=== PATIENT | male | born 1950 | race Caucasian/White ===

== ENCOUNTER 2018-06-18 06:56 | Day surgery (SDC) | payer MEDICARE, OTHER ==
[~2018-06-18 06:56] MED LIST: KETOROLAC TROMETHAMINE 0.45% 4 DROP/0.4 ML DROPERETTE OS PRN
[2018-06-18] MEDS ORDERED: EPINEPHRINE INJ/PF 1 MG/1 ML AMPULE ONE ×2 (06:59→07:27)
[2018-06-18] MEDS ORDERED: LIDOCAINE 1%/PHENYLEPHRINE 1.5% 1 ML VIAL ONE ×2 (06:59→07:28)
[2018-06-18] MEDS ORDERED: CHONDR SU A NA/HYALUR INTRAOC KIT (SURGICARE) ONE ×2 (06:59→07:28)
[2018-06-18] MEDS ORDERED: FENTANYL CITRATE INJ/PF 100 MCG/2 ML AMPUL ONE (07:01)
[2018-06-18] MEDS ORDERED: MIDAZOLAM 2 MG/2 ML INJ ONE (07:01)
[2018-06-18] MEDS: TETRACAINE HCL 0.5% OPH SOLN 4 ML OS PRN ×3 (07:23→07:56)
[2018-06-18] MEDS: BESIFLOXACIN HCL 0.6% OPH SUSP 5 ML BOTTLE OS PRN ×4 (07:24→08:22)
[2018-06-18] MEDS: CYCLOPENTOLATE 0.2%/PHENYLEPHRINE 1% OPH SOLN 2 ML OS PRN ×3 (07:24→07:46)
[2018-06-18] MEDS: TROPICAMIDE 1% OPH SOLN 3 ML OS PRN ×3 (07:24→07:46)
[2018-06-18] MEDS: DORZOLAMIDE HCL 2%/TIMOLOL MALEAT 0.5% OPH SOLN 10 ML OS PRN ×2 (08:22)
--- NOTE | 2018-06-19 08:34 | [facility] OPERATIVE REPORT E ---
[facility] Operative Report NAME: CARYN REED AGE: 68Y DATE OF SURGERY: 06/18/2018 ROOM: PREOPERATIVE DIAGNOSIS: CATARACT, LEFT EYE. POSTOPERATIVE DIAGNOSIS: CATARACT, LEFT EYE. OPERATION: Cataract extraction with insertion of an IOL of the left eye. SURGEON: LYNDSEY LOPEZ M.D. ANESTHESIA: Topical. PROCEDURE: After obtaining appropriate consent, the patient's left eye was prepped and draped in sterile fashion as well as the surgeon in a sterile manner and cataract surgery was started. First a paracentesis blade was used to make a side-port incision. Viscoelastic was used to inflate the anterior chamber. Next a 2.4 mm incision was made with a 2.4 mm blade, clear corneal temporally. A continuous capsulorrhexis was made using a cystotome and Utrata forceps. Following this hydrodissection was carried out to make the lens fully loose and mobile and it was rotated 90 degrees. Following this, a nivkot-kpw-vedoaxa technique was used to phacoemulsify the lens with a CDE of 10.69. The remaining cortex was removed with irrigation/aspiration. Provisc was instilled into the capsular bag to inflate the bag. A SN60WF, 22.0 diopter lens was placed. The remaining viscoelastic material was removed with irrigation/aspiration. Following this, the incision was found to be watertight. Besivance was instilled into the eye and a protective shield was placed over the eye. The patient returned to the postoperative recovery in stable condition. DICTATING PHYSICIAN: LYNDSEY LOPEZ M.D. [id number] PHY#: [id number] ID: [id number] JOB#: [id number] ACCT: [id number] cc:LYNDSEY LOPEZ M.D. >
--- NOTE | 2018-06-19 08:39 | [facility] DISCHARGE SUMMARY E ---
[facility] Discharge Summary NAME: CARYN REED AGE: 68Y ADMITTED: 06/18/2018 DISCHARGED: 06/18/2018 DIAGNOSIS: CATARACT, LEFT EYE. SUMMARY: This is a 68-year-old male who underwent cataract extraction, left eye. He underwent surgery because he was having difficulty driving due to increased glare from headlights and difficulty seeing small print. DISCHARGE INSTRUCTIONS: They should be on a regular diet, no bending at the waist, and no heavy lifting. They should use their Moxifloxacin, Prolensa, and Pred Forte at 3 p.m. and 8 p.m. and sleep with a rigid shield. I will see them for a 1-day postoperative tomorrow. DICTATING PHYSICIAN: LYNDSEY LOPEZ M.D. [id number] PHY#: [id number] ID: [id number] JOB#: [id number] ACCT: [id number] cc:LYNDSEY LOPEZ M.D. >
== END 2018-06-18 09:07 | disposition home or self-care (01) ==
LOC: SC 06:56
PROVIDERS: ATTEND Internal Medicine
DX: H25.812 Combined forms of age-related cataract, left eye (principal); F17.210 Nicotine dependence, cigarettes, uncomplicated; I10 Essential (primary) hypertension; K21.9 Gastro-esophageal reflux disease without esophagitis; Z79.899 Other long term (current) drug therapy
CPT/HCPCS: 66984; V2632; J2250; J3490 ×2; A9270; J0171; J3010; J2370; 142

== ENCOUNTER 2018-07-09 08:53 | Day surgery (SDC) | payer MEDICARE, OTHER ==
[~2018-07-09 08:53] MED LIST changes: +CHONDR SU A NA/HYALUR INTRAOC KIT (SURGICARE) ONE; +EPINEPHRINE INJ/PF 1 MG/1 ML AMPULE ONE; +KETOROLAC TROMETHAMINE 0.45% 4 DROP/0.4 ML DROPERETTE OD PRN; -KETOROLAC TROMETHAMINE 0.45% 4 DROP/0.4 ML DROPERETTE OS PRN; +LIDOCAINE 1%/PHENYLEPHRINE 1.5% 1 ML VIAL ONE
[2018-07-09] MEDS: TROPICAMIDE 1% OPH SOLN 3 ML OD PRN ×3 (10:10→10:40)
[2018-07-09] MEDS: CYCLOPENTOLATE 0.2%/PHENYLEPHRINE 1% OPH SOLN 2 ML OD PRN ×3 (10:10→10:40)
[2018-07-09] MEDS: BESIFLOXACIN HCL 0.6% OPH SUSP 5 ML BOTTLE OD PRN ×4 (10:11→11:07)
[2018-07-09] MEDS: TETRACAINE HCL 0.5% OPH SOLN 4 ML OD PRN ×3 (10:12→10:44)
[2018-07-09] MEDS ORDERED: MIDAZOLAM 2 MG/2 ML INJ ONE (10:28)
[2018-07-09] MEDS: DORZOLAMIDE HCL 2%/TIMOLOL MALEAT 0.5% OPH SOLN 10 ML OD PRN ×2 (11:07)
--- NOTE | 2018-07-10 11:05 | [facility] OPERATIVE REPORT E ---
[facility] Operative Report NAME: CARYN REED AGE: 68Y DATE OF SURGERY: 07/09/2018 ROOM: PREOPERATIVE DIAGNOSIS: CATARACT, RIGHT EYE. POSTOPERATIVE DIAGNOSIS: CATARACT, RIGHT EYE. OPERATION: Cataract extraction with insertion of an IOL of the right eye. SURGEON: LYNDSEY LOPEZ M.D. ANESTHESIA: Topical. PROCEDURE: After obtaining appropriate consent, the patient's right eye was prepped and draped in sterile fashion as well as the surgeon in a sterile manner and cataract surgery was started. First a paracentesis blade was used to make a side-port incision. Viscoelastic was used to inflate the anterior chamber. Next a 2.4 mm incision was made with a 2.4 mm blade, clear corneal temporally. A continuous capsulorrhexis was made using a cystotome and Utrata forceps. Following this hydrodissection was carried out to make the lens fully loose and mobile and it was rotated 90 degrees. Following this, a ulciei-nsw-vmzjyqa technique was used to phacoemulsify the lens with a CDE of 9.73. The remaining cortex was removed with irrigation/aspiration. Provisc was instilled into the capsular bag to inflate the bag. A SN60WF, 22.0 diopter lens was placed. The remaining viscoelastic material was removed with irrigation/aspiration. Following this, the incision was found to be watertight. Besivance was instilled into the eye and a protective shield was placed over the eye. The patient returned to the postoperative recovery in stable condition. DICTATING PHYSICIAN: LYNDSEY LOPEZ M.D. [id number] PHY#: [id number] ID: [id number] JOB#: [id number] ACCT: [id number] cc:LYNDSEY LOPEZ M.D. >
--- NOTE | 2018-07-10 11:09 | [facility] DISCHARGE SUMMARY E ---
[facility] Discharge Summary NAME: CARYN REED AGE: 68Y ADMITTED: 07/09/2018 DISCHARGED: 07/09/2018 HOSPITAL COURSE: This is a 68-year-old male who underwent cataract extraction of the right eye. DIAGNOSIS: CATARACT, RIGHT EYE. He underwent surgery because he was having difficulty seeing words on the television. DISCHARGE INSTRUCTIONS: He should be on a regular diet. No bending at the waist, no heavy lifting. He should use his Vigamox, Prolensa, and Predforte at 3 p.m. and 8 p.m. and sleep with a rigid shield. I will see him for his 1-day postoperative tomorrow. DICTATING PHYSICIAN: LYNDSEY LOPEZ M.D. [id number] PHY#: [id number] ID: [id number] JOB#: [id number] ACCT: [id number] cc:LYNDSEY LOPEZ M.D. >
== END 2018-07-09 11:45 | disposition home or self-care (01) ==
LOC: SC 08:53
PROVIDERS: ATTEND Internal Medicine
DX: H25.811 Combined forms of age-related cataract, right eye (principal); Z96.1 Presence of intraocular lens; K21.9 Gastro-esophageal reflux disease without esophagitis; Z79.899 Other long term (current) drug therapy; F17.210 Nicotine dependence, cigarettes, uncomplicated
CPT/HCPCS: 66984; V2632; J2250; J3490 ×2; A9270; J0171; J2370; 142

== ENCOUNTER 2019-12-05 21:25 | Emergency (ER) | payer MEDICARE, OTHER ==
--- NOTE | 2019-12-05 22:07 | ER Document Report ---
ED Medical Screen (RME) - General Chief Complaint: Dizziness Stated Complaint: DIZZY Time Seen by Provider: 12/05/19 21:59 Primary Care Provider: IKE,PENG [Primary Care Provider] - Follow up as needed Mode of Arrival: Wheelchair Information source: Patient, Relative Notes: HPI; 69-year-old male presents to the emergency room with 2 episodes of dizziness that started earlier this evening. States one was around 5 PM and again around 730. States he went to stand up and he felt extremely dizzy and almost fell to the ground. Did not pass out. Did not fall or sustain any injuries. Denies chest pain, shortness of breath, no difficulty breathing. Denies any recent travel. Denies any COVID-19 exposure. PE: Alert and oriented x3. Lungs: Clear to auscultation without rales, rhonchi, wheezes. Heart: Bradycardic without murmurs, rubs, gallops. I have greeted and performed a rapid initial assessment of this patient. A comprehensive ED assessment and evaluation of the patient, analysis of test results and completion of the medical decision making process will be conducted by additional ED providers. I have specifically instructed the patient or famil y members with the patient to immediately return to any nursing staff should anything change in the patient's condition or with their chief complaint. TRAVEL OUTSIDE OF THE [place] IN LAST 30 DAYS: No - Related Data Allergies/Adverse Reactions: No Known Allergies Allergy (Verified 07/06/18 15:11) Past Medical History - Past Medical History Cardiac Medical History: Reports: Hx Hypercholesterolemia, Hx Hypertension - MED Denies: Hx Heart Attack Pulmonary Medical History: Denies: Hx Asthma Neurological Medical History: Denies: Hx Cerebrovascular Accident, Hx Seizures GI Medical History: Denies: Hx Hepatitis, Hx Hiatal Hernia, Hx Ulcer Infectious Medical History: Denies: Hx Hepatitis Past Surgical History: Reports: Hx Appendectomy, Hx Orthopedic Surgery - L shoulder, L elbow. Denies: Hx Open Heart Surgery, Hx Pacemaker - Immunizations Hx Diphtheria, Pertussis, Tetanus Vaccination: No Physical Exam - Vital signs Vitals: Temp Pulse Resp BP Pulse Ox 98.7 F 59 L 22 H 158/64 H 96 12/05/19 21:43 12/05/19 21:43 12/05/19 21:43 12/05/19 21:43 12/05/19 21:43 Course - Vital Signs Vital signs: Temp Pulse Resp BP Pulse Ox 98.7 F 59 L 22 H 158/64 H 96 12/05/19 21:43 12/05/19 21:43 12/05/19 21:43 12/05/19 21:43 12/05/19 21:43 Doctor's Discharge - Discharge Referrals: LOCALMD,NO [Primary Care Provider] - Follow up as needed
--- NOTE | 2019-12-05 23:03 | RADIOLOGY REPORT (SQ) ---
EXAM DESCRIPTION: CT HEAD WITHOUT IV CONTRAST COMPLETED DATE/TME: 12/05/2019 22:03 CLINICAL INDICATION: 69-year-old male with dizziness. COMPARISON: None. TECHNIQUE: CT brain without contrast. This exam was performed according to our departmental dose optimization program which includes use of automated exposure control, adjustment of the mA and/or kV according to patient size and/or use of iterative reconstruction technique. FINDINGS: Multifocal regions of patchy hypoattenuation are present in a subcortical and periventricular deep white matter distribution, nonspecific; however, most likely represent small vessel ischemic disease, age indeterminate. The ventricles, sulci, and cisterns are symmetric and unremarkable. The sagastume-white matter differentiation is preserved. There is no mass effect, midline shift, intra- or extra-axial fluid collection/acute hemorrhage. The osseous structures are unremarkable. The paranasal sinuses reveal polyp or retention cyst within the bilateral maxillary sinuses, mucosal thickening within the anterior bilateral LEFT greater than RIGHT ethmoid air cells otherwise the remaining paranasal sinuses and mastoid air cells are clear. Incidentally noted fatty replacement of the LEFT parotid gland. IMPRESSION: 1. No acute intracranial abnormalities. Nonspecific white matter change most likely small vessel ischemic disease, age indeterminate. 2. CT is insensitive for early evaluation of acute stroke. If there is clinical concern for acute ischemia, an MRI may be considered.
--- NOTE | 2019-12-05 23:05 | RADIOLOGY REPORT (SQ) ---
XR CHEST 1 VIEW CLINICAL STATEMENT: weakness COMPARISON: 08/07/2012 FINDINGS: Cardiomediastinal silhouette is within normal limits. There is no focal lung consolidation or pleural effusion. No evidence of pulmonary edema or pneumothorax. IMPRESSION: No acute cardiopulmonary disease.
--- NOTE | 2019-12-05 23:06 | EKG REPORT ---
SEVERITY:- ABNORMAL ECG - ACCELERATED JUNCTIONAL ESCAPE RHYTHM INCOMPLETE RIGHT BUNDLE BRANCH BLOCK : Confirmed by: Brandi Lynn MD 05-Dec-2019 23:05:24
[2019-12-05 23:33] LABS: ABSOLUTE BASOPHILS # (AUTO) 0.1 10^3/uL (0.0-0.2); ABSOLUTE EOSINOPHILS # (AUTO) 0.5 10^3/uL (0.0-0.6); ABSOLUTE LYMPHOCYTES (AUTO) 2.2 10^3/uL (0.5-4.7); ABSOLUTE NEUT (AUTO) 9.4 10^3/uL (1.7-8.2); BASOPHILS % (AUTO) 0.7 % (0-2); EOSINOPHILS % (AUTO) 3.8 % (0-6); HEMATOCRIT 43.7 % (37.9-51.0); HEMOGLOBIN 15.2 g/dL (13.5-17.0); MEAN CORPUSCULAR HEMOGLOBIN 29.4 pg (27.0-33.4); MEAN CORPUSCULAR HGB CONC 34.8 g/dL (32.0-36.0); MEAN CORPUSCULAR VOLUME 84 fl (80-97); MONOCYTES % (AUTO) 7.3 % (3-13); PLATELET COUNT 300 10^3/uL (150-450); RED BLOOD COUNT 5.18 10^6/uL (4.35-5.55); RED CELL DISTRIBUTION WIDTH 14.2 % (11.5-14.0); SEGMENTED NEUTROPHILS % (AUTO) 71.2 % (42-78); TOTAL CELLS COUNTED % (AUTO) 100 %; WHITE BLOOD COUNT 13.2 10^3/uL (4.0-10.5)
[2019-12-05 23:49] LABS: ALBUMIN 4.2 g/dL (3.5-5.0); ALKALINE PHOSPHATASE 100 U/L (38-126); ANION GAP 10 (5-19); ASPARTATE AMINO TRANSFERASE 18 U/L (17-59); BILIRUBIN,DIRECT 0.4 mg/dL (0.0-0.4); BILIRUBIN,TOTAL 0.4 mg/dL (0.2-1.3); BLOOD UREA NITROGEN 16 mg/dL (7-20); CALCIUM 9.7 mg/dL (8.4-10.2); CARBON DIOXIDE 24 mmol/L (22-30); CHLORIDE 104 mmol/L (98-107); GLUCOSE 110 mg/dL (75-110); POTASSIUM 5.1 mmol/L (3.6-5.0); TOTAL PROTEIN 7.4 g/dL (6.3-8.2)
[2019-12-06] MEDS ORDERED: ONDANSETRON 4 MG TAB.RAPDIS PO ONE (03:37)
[2019-12-06] MEDS ORDERED: MECLIZINE HCL 25 MG TABLET PO ONE (03:37)
--- NOTE | 2019-12-06 03:37 | ER Document Report ---
ED General - General Chief Complaint: Dizziness Stated Complaint: DIZZY Time Seen by Provider: 12/05/19 21:59 Mode of Arrival: Wheelchair Notes: Patient is a 69-year-old male that comes emergency department for chief com plaint of 2 separate episodes where he felt like he was spinning around in a ho-chunk, he states he felt unsteady, he felt nauseated, he states he thought he was going to fall. First episode was around 5 PM, second episode was around 7:30 PM. Patient states that he still gets a queasy spinning sensation occasionally but not as bad since that time. He denies any fall injury, head injury, he denies headache. He denies focal numbness or weakness, denies visual changes. He admits to being congested almost nonstop for the past 6 months, he admits to smoking. Past medical history of hypertension, hyperlipidemia. He lives at home with his . He denies fever, cough, chest pain, shortness of breath, vomiting. TRAVEL OUTSIDE OF THE [place] IN LAST 30 DAYS: No - Related Data Allergies/Adverse Reactions: No Known Allergies Allergy (Verified 07/06/18 15:11) Past Medical History - General Information source: Patient, Relative - Social History Smoking Status: Never Smoker Frequency of alcohol use: None Drug Abuse: None Lives with: Family Family History: Reviewed & Not Pertinent - Past Medical History Cardiac Medical History: Reports: Hx Hypercholesterolemia, Hx Hypertension - MED Denies: Hx Heart Attack Pulmonary Medical History: Denies: Hx Asthma Neurological Medical History: Denies: Hx Cerebrovascular Accident, Hx Seizures GI Medical History: Denies: Hx Hepatitis, Hx Hiatal Hernia, Hx Ulcer Infectious Medical History: Denies: Hx Hepatitis Past Surgical History: Reports: Hx Appendectomy, Hx Orthopedic Surgery - L shoulder, L elbow. Denies: Hx Open Heart Surgery, Hx Pacemaker - Immunizations Hx Diphtheria, Pertussis, Tetanus Vaccination: No Review of Systems - Review of Systems Constitutional: No symptoms reported EENT: No symptoms reported Cardiovascular: No symptoms reported Respiratory: No symptoms reported Gastrointestinal: See HPI Genitourinary: No symptoms reported Male Genitourinary: No symptoms reported Musculoskeletal: No symptoms reported Skin: No symptoms reported Hematologic/Lymphatic: No symptoms reported Neurological/Psychological: See HPI Physical Exam - Vital signs Vitals: Temp Pulse Resp BP Pulse Ox 98.7 F 59 L 22 H 158/64 H 96 12/05/19 21:43 12/05/19 21:43 12/05/19 21:43 12/05/19 21:43 12/05/19 21:43 - Notes Notes: GENERAL: Alert, interacts well. No acute distress. HEAD: Normocephalic, atraumatic. EYES: Pupils equal, round, and reactive to light. Extraocular movements intact. No obvious nystagmus ENT: Oral mucosa moist, tongue midline. Oropharynx unremarkable. Airway patent. Nares patent, mild nasal congestion, sinuses non-tender, ear canals with moderately large amount of cerumen but otherwise unremarkable, TM's difficult to visualize but appear intact NECK: Full range of motion. Supple. Trachea midline. No lymphadenopathy. LUNGS: Clear to auscultation bilaterally, no wheezes, rales, or rhonchi. No respiratory distress. Non-tender chest wall. HEART: Regular rate and rhythm. No murmur ABDOMEN: Soft, non-tender. Non-distended. EXTREMITIES: Moves all 4 extremities spontaneously. No edema, normal radial and dorsalis pedis pulses bilaterally. No cyanosis. BACK: no cervical, thoracic, lumbar midline tenderness. No saddle anesthesia, normal distal neurovascular exam. Moves all extremities in full range of motion. NEUROLOGICAL: Alert and oriented x3. Normal speech. Cranial nerves II through XII grossly intact. Strength 5/5 in all extremities. PSYCH: Normal affect, normal mood. SKIN: Warm, dry, normal turgor. No rashes or lesions noted. Course - Re-evaluation Re-evalutation: Patient is able to ambulate without difficulty, if he looks down he gets a slight spinning sensation, however his symptoms have otherwise resolved. He has been given meclizine and Zofran. Patient has a normal neurological exam otherwise, has not had any head trauma, he has no headache, symptoms have been intermittent and are improving. As result I have very low suspicion of acute intracranial emergency. Patient has had a long period of time of congestion, based on his overall evaluation I strongly suspect labyrinthitis. Work-up from triage reviewed. CBC unremarkable except for mild cytosis which is nonspecific he was in his evaluation, chemistry unremarkable, troponin negative. CAT scan of the head and chest x-ray also reviewed with no acute findings. Patient is requesting discharge. I discussed treatment, follow-up, and return precautions in detail. Patient states appreciation and agreement. Stable and well- appearing at time of discharge. - Vital Signs Vital signs: Temp Pulse Resp BP Pulse Ox 97.9 F 59 L 16 152/79 H 97 12/06/19 04:50 12/06/19 04:50 12/06/19 04:50 12/06/19 04:50 12/06/19 04:50 - Laboratory Result Diagrams: 12/05/19 22:50 12/05/19 22:50 Laboratory results interpreted by me: 12/05/19 12/05/19 22:50 22:50 WBC 13.2 H RDW 14.2 H Absolute Neuts (auto) 9.4 H Potassium 5.1 H - EKG Interpretation by Me Additional EKG results interpreted by me: EKG shows sinus bradycardia at a rate of 57, QTc 417, normal axis, no T wave inversions or ST segment changes in consecutive leads. Discharge - Discharge Clinical Impression: Sinus congestion, Vertigo, Nausea Condition: Stable Disposition: HOME, SELF-CARE Additional Instructions: Based on your evaluation I believe that you have labyrinthitis, ear problem causing vertigo. This is most likely worsened by your ongoing congestion. I recommend the nasal spray for the congestion, the Antivert for the vertigo, the Zofran if needed for nausea. You can also take the diazepam if needed for worse vertigo symptoms/episodes using precautions. Follow-up with primary care for additional management. Return if you worsen including severe headache, visual changes, weakness on one side of your body,, inability to walk, fever, passing out, or any other concerning or worsening symptoms. Prescriptions: Meclizine HCl [Antivert 25 mg Tablet] 25 mg PO TID PRN #21 tablet PRN Reason: Fluticasone Propionate [Flonase Nasal Rosie 50 Mcg/Rosie 16 gm] 2 sprays NASL Q12 #1 inhaler Diazepam [Valium 5 mg Tablet] 2.5 mg PO TID PRN #8 tablet PRN Reason: Ondansetron [Zofran Odt 4 mg Tablet] 1 - 2 tab PO Q4H PRN #15 tab.rapdis PRN Reason: For Nausea/Vomiting
[2019-12-06 04:55] VITALS: BP 152/79
== END 2019-12-06 04:50 | disposition home or self-care (01) ==
LOC: ER 21:25
DX: R09.81 Nasal congestion (principal); R42 Dizziness and giddiness; R11.0 Nausea; F17.200 Nicotine dependence, unspecified, uncomplicated; I10 Essential (primary) hypertension; E78.5 Hyperlipidemia, unspecified
CPT/HCPCS: 93005; 99285; 36415; 85025; 80053; 84484; 71045; 70450; 93010; A9270 ×2; S0119